=== PATIENT | male | born 1990 | race Caucasian/White ===

== ENCOUNTER 2017-06-28 07:49 | Emergency (ER) | payer SELFPAY ==
[~2017-06-28] VITALS: Ht 182.9 cm; Wt 68.0 kg
[2017-06-28 09:00] VITALS: BP 154/104
== END 2017-06-28 09:38 | disposition home or self-care (01) ==
LOC: ER 07:49
DX: R51 Headache (principal)
CPT/HCPCS: 70450; 70480

== ENCOUNTER 2017-09-16 22:35 | Emergency (ER) | payer MEDICAID ==
[~2017-09-16] VITALS: Ht 182.9 cm; Wt 76.2 kg
[2017-09-16 22:45] VITALS: BP 124/91
[2017-09-17] MEDS ORDERED: TETANUS-DIPTH-ACEL PERTUSSIS 0.5ML SYRG IM ONE ×2 (03:30→03:55)
== END 2017-09-17 04:40 | disposition home or self-care (01) ==
LOC: ER 22:35
DX: S61.411A Laceration without foreign body of right hand, initial encounter (principal); W45.8XXA Other foreign body or object entering through skin, initial encounter; Y93.89 Activity, other specified; Y92.89 Other specified places as the place of occurrence of the external cause; Y99.8 Other external cause status
CPT/HCPCS: 12002; 90471; 90715